=== PATIENT | male | born 1995 | race Caucasian/White ===

== ENCOUNTER 2022-01-26 22:27 | Emergency (ER) | payer BC, SELFPAY ==
[2022-01-26 22:28] VITALS: BP 142/84; PULSE 58; RESP 18; TEMP 35.8; O2SAT 100; BMI 39.9
[2022-01-26 22:41] VITALS: BP 155/87; PULSE 64; RESP 18; O2SAT 100
--- NOTE | 2022-01-26 22:45 | EKG12_ITS ---
Test Reason : CP Blood Pressure : / mmHG Vent. Rate : 064 BPM Atrial Rate : 064 BPM P-R Int : 134 ms QRS Dur : 086 ms QT Int : 394 ms P-R-T Axes : 033 006 009 degrees QTc Int : 406 ms Sinus rhythm with marked sinus arrhythmia Otherwise normal ECG Confirmed by ROSALINE DORADO, UMAIR ([id number]), editor trade journal DANE GARRIDO ([id number]) on 01/27/2022 8:35:03 AM Referred By: DELMER Confirmed By:UMAIR WAGGONER MD
--- NOTE | 2022-01-26 23:05 | RAD_ITS ---
EXAM: XR CHEST, 2 VIEWS CLINICAL INDICATION: chest pain TECHNIQUE: Frontal and lateral views of the chest. This report was created using [employer] report generation technology. COMPARISON: None. FINDINGS: LUNGS AND PLEURAL SPACES: Unremarkable. No consolidation or edema. No pneumothorax. No effusion. HEART: Unremarkable. Cardiac silhouette not enlarged. MEDIASTINUM: Central airways and mediastinal contour are unremarkable. BONES/JOINTS: Unremarkable. SOFT TISSUES: Unremarkable. RAD/Chest PA and Lateral IMPRESSION: No radiographic evidence of acute cardiopulmonary disease. Electronically Signed: Brenda Brady MD at 0:25 EDT ,
[2022-01-26 23:17] LABS: Absolute Lymphocyte Count 3.48 X10^3/uL (0.83-4.51); Absolute Neutrophil Count 5.7 X10^3/uL (2.0-7.7); Basophil# 0.05 X10^3/uL; Basophil% 0.5 % (0-1); Eosinophil# 0.08 X10^3/uL; Eosinophils% 0.8 % (0-5); Hematocrit 42.1 % (40-54); Lymphocyte # 3.48 X10^3/ul (0.83-4.51); Mean Corp Hgb Conc 35.6 g/dL (32-36); Mean Corpuscular Hgb 30.7 pg (27.0-32.0); Mean Corpuscular Volume 86.3 fL (80-94); Monocyte# 0.83 X10^3/uL; Monocyte% 8.1 % (0-10); NRBC Flagged by Analyzer 0.2 % (0-5); Neutrophil # 5.68 X10^3/uL (2.7-7.7); Neutrophil % 55.5 % (47-70); Platelet Count 320 K/mm3 (150-450); RBC Distribution Width CV 12.5 % (11.6-14.6); RBC Distribution Width SD 39.2 fl (35.1-43.9); Red Blood Count 4.88 M/mm3 (4.6-6.2); White Blood Count 10.2 K/mm3 (4.4-11.0)
[2022-01-26 23:23] LABS: ALB/GLOB Ratio 1.2 RATIO (0.9-2.4); AST(SGOT) 17 U/L (15-37); Alanine Aminotransfer ALT/SGPT 40 U/L (16-61); Albumin, Serum 4.5 g/dL (3.2-5.0); Alkaline Phosphatase 61 U/L (45-117); Anion Gap 4 (5-15); BUN 13 mg/dL (7-18); BUN/Creat Ratio 12.1 RATIO (10-20); Calcium,Total 9.7 mg/dL (8.5-10.1); Chloride 106 mmol/L (98-107); Creatinine, Serum 1.07 mg/dL (0.70-1.30); EST Glomerular Filtration Rate 88 mL/min (>60); Est Glom Filt Rate - Afr Amer 107 mL/min (>60); Estimated Creatinine Clearance 104.62 ml/min; Globulin 3.6 g/dL (2.2-4.2); Glucose 98 mg/dL (74-106); Potassium 3.8 mmol/L (3.5-5.1); Protein, Total 8.1 g/dL (6.4-8.2); Sodium Level 140 mmol/L (136-145); Troponin-I HS 4 pg/mL (3.0-78.0)
--- NOTE | 2022-01-26 23:31 | ED.VIS.CHEST ---
HPI History of Present Illness Chief Complaint: Chest Pain Informant: patient Narrative Narrative: Patient is a 26-year-old male that denies any past medical history presenting with chest discomfort. He states he developed it yesterday while his was in labor. He states he was quite anxious about the situation. Pains in his left chest. He describes it more as a feeling of weakness in his left chest. Does not radiate but notes he has had an intermittent discomfort in his neck. Does wax and wane in intensity. Walking seems to make it help and is worse at rest. Denies associated nausea, sweating or shortness of breath. Has been feeling cold over the past day or 2. Denies any upper respiratory symptoms. Denies any swelling of his legs. Not on any estrogen or testosterone medications. Denies any history of DVT or PE. Notes he has similar episode a couple months ago and was evaluated at [facility]. He followed up with his doctor and had a Holter monitor. Was told he had sinus bradycardia at rest and some sinus arrhythmia but otherwise it was normal. Patient does chew tobacco. Neither parents have any cardiovascular history but his paternal grandparents do. Patient has no other complaints at this time. Denies any associated GI or symptoms. PFSH PFSH Medical History no medical history Allergy/AdvReac Type Severity Reaction Status Date / Time amoxicillin Allergy Rash Verified 01/26/22 22:30 Social History Smoking Status: Former smoker ROS ROS ED Constitutional Constitutional ED: Denies fatigue or weakness Eyes Eyes: Denies blurry vision Cardiovascular Cardiovascular: Reports as per HPI and chest pain; Denies diaphoresis or edema Respiratory/Chest Respiratory/Chest: Denies cough or dyspnea Gastrointestinal Gastrointestinal: Denies abdominal pain, nausea or vomiting Genitourinary Genitourinary ED: Denies decreased urination or dysuria Musculoskeletal Musculoskeletal: Denies extremity pain Integumentary Denies new lesions or rash Neurologic Neurologic: Denies paresthesias or weakness Psychiatric Psychiatric: Reports anxiety; Denies depression Hematologic/Lymphatic Hematologic/Lymphatic: Denies easy bleeding or easy bruising EXAM Physical Exam Const Vital Signs: 01/26/22 22:28 01/26/22 22:41 01/27/22 00:27 Temperature 96.5 F L Temperature Source Temporal Pulse Rate 58 L 64 65 Respiratory Rate 18 18 15 Blood Pressure 142/84 H 155/87 H Blood Pressure Mean 103 109 Pulse Ox 100 100 99 Oxygen Delivery Method Room Air Room Air Room Air Positive well nourished, well developed and healthy appearing General Appearance ED: well developed HEENT Reports moist mucous membranes normocephalic Mouth ED: Yes moist mucous membranes normal Eyes PERRL and EOMs intact bilaterally General Eye ED: Yes normal appearance of both eyes Pupil: PERRL Neck supple and no JVD Chest Wall inspection of chest normal and palpation of chest normal Resp normal respiratory effort and normal air movement Cardio regular rate and regular rhythm Peripheral Pulses: pulses 2+ throughout GI non-tender and non-distended Back/Spine no CVA tenderness and normal to inspection Extremity normal to inspection and full ROM Neuro oriented x3, moves all extremities and no focal motor deficits Psych mental status grossly normal and thought process normal Skin no rashes or lesions noted and no petechiae Heart Score History: Slightly/Non-Suspicious ECG: Normal Age: </= 45 years Risk Factors: 1 or 2 Risk Factors Troponin: </= Normal Limit Score: 1 MDM MDM MDM Narrative Medical decision making narrative: Patient is evaluated for left-sided chest discomfort that started yesterday while his was in labor. Its been milder but constant since. EKG does not show any ischemic changes and his heart score is 1. High sensitive troponin is 4 and I do not think this is ACS. He is PE RC negative I do not think this is a pulmonary emboli. Patient's two-view chest x-ray does not show any acute process as interpreted myself as well as radiology. CBC is normal. CMP remarkable only for an elevated total bili of 2.30. Patient has mother state that he has had elevated bilirubins in the past and as a child. Mother notes that sometimes his eyes get yellow. They are not aware of any family history of any jaundice or liver problems. I question if he could have some type of Gilbert syndrome. Discussed with patient at this time I do not think he is at risk for any major cardiac event and is safe to go home. Is possible this could be stress-induced. We will follow-up with his primary care doctor. Also follow-up for his elevated bilirubin. Seems to more of a chronic issue I do not think any emergent imaging is indicated. He has no tenderness palpation of discomfort in the right upper quadrant. Patient and mother agreeable with this plan of care. Lab Data Attestation: I reviewed the patient's lab results. Labs: Laboratory Results - last 24 hr 01/26/22 01/26/22 22:55 22:55 WBC 10.2 RBC 4.88 Hgb 15.0 Hct 42.1 MCV 86.3 MCH 30.7 MCHC 35.6 RDW Std Deviation 39.2 RDW Coeff of Lana 12.5 Plt Count 320 MPV 10.0 Immature Gran % (Auto) 1.100 H Neut % (Auto) 55.5 Lymph % (Auto) 34.0 Free[place] % (Auto) 8.1 Eos % (Auto) 0.8 Baso % (Auto) 0.5 Absolute Neuts (auto) 5.7 Absolute Lymphs (auto) 3.48 Nucleated RBC % 0.2 Sodium 140 Potassium 3.8 Chloride 106 Carbon Dioxide 30.0 Anion Gap 4 L BUN 13 Creatinine 1.07 Estim Creat Clear Calc 104.62 Est GFR (MDRD) Af Amer 107 Est GFR (MDRD) Non-Af 88 BUN/Creatinine Ratio 12.1 Glucose 98 Calcium 9.7 Total Bilirubin 2.30 H AST 17 ALT 40 Alkaline Phosphatase 61 Troponin I High Sens 4 Total Protein 8.1 Albumin 4.5 Globulin 3.6 Albumin/Globulin Ratio 1.2 Radiography Chest X-Ray - ED: 2 View, Read by ED Physician, Read by Radiologist and Normal Diagnostic Testing: Clinical Impression(s) from Imaging Studies Chest X-Ray 01/26/22 23:05 IMPRESSION: No radiographic evidence of acute cardiopulmonary disease. Electronically Signed: Brenda Brady MD at 0:25 EDT , Rhythm Strip Rhythm Strip: Sinus Rhythm Rate: 64 Ectopy: None EKG Initial EKG: Attestation: I personally reviewed and interpreted this EKG as follows: Interpretation: Sinus Rhythm Comments: Normal sinus rhythm at a rate of 64 with sinus arrhythmia, suspect respiratory variation Normal intervals Normal axis Normal ST segments Discharge Plan Triage Chief Complaint: Chest Pain ED Provider: Marika Alfaro Dx/Rx/DC Orders Clinical Impression: Chest pain of unknown etiology, Elevated bilirubin Instructions: ED Chest Pain, Uncertain Cause Primary Care Provider: Jose Luis Ham Referrals: Jose Luis Ham MD [Primary Care Provider] - Disposition Disposition: Home, Self Care
[2022-01-27 00:27] VITALS: PULSE 65; RESP 15; O2SAT 99
== END 2022-01-27 00:53 | disposition home or self-care (01) ==
PROVIDERS: Emergency Provider Emergency Medicine; PCP Family Medicine; Visit Provider Emergency Medicine
DX: R07.9 Chest pain, unspecified (principal); R17 Unspecified jaundice; Z87.891 Personal history of nicotine dependence
CPT/HCPCS: 71046; 80053; 84484; 85025; 93005; 99282